=== PATIENT | male | born 1955 | race Caucasian/White ===

== ENCOUNTER 2018-09-15 07:52 | Day surgery (SDC) | payer MEDICAID, MEDICARE ==
[~2018-09-15] VITALS: Ht 175.3 cm; Wt 66.1 kg
[2018-09-15 09:10] VITALS: Ht 175.3 cm; Wt 66.1 kg
[2018-09-15] MEDS ORDERED: LOPERAMIDE PO (09:15)
[2018-09-15 09:58] VITALS: BP 123/64; PULSE 80; RESP 24
--- NOTE | 2018-09-15 10:29 | PREAC ---
Date/Time of Note Date/Time of Note DATE: 09/15/18 TIME: 10:28 Anesthesia Eval and Record Evaluation Time Pre-Procedure Interview DATE: 09/15/18 TIME: 10:28 Age 62 Sex male NPO: 8 hrs Preoperative diagnosis SCREENING Planned procedure COLONOSCOPY Past Medical History Past Medical History: Includes Pulm: Asthma Surgery & Anesthesia Issues No known issue Meds Anticoagulation: No Beta Maite within 24 hr: No Reason Beta Maite not given: Pt. not on B-Maite Reported Medications [Loperamide] No Conflict Check, PO DAILY PRN for DIARRHEA 09/15/18 Meds reviewed: Yes Allergies Coded Allergies: No Known Allergy (Unverified , 09/15/18) Allergies Reviewed: Yes Labs/Studies Labs Reviewed: Reviewed by anesthesiologist test: N/A Pre-procedure Exam Last vitals Vital Signs Date Temp Pulse Resp B/P (MAP) Pulse Ox O2 O2 Flow FiO2 Time Delivery Rate 09/15/18 97.3 80 24 123/64 99 Room Air 09:58 (83) Airway: Adequate mouth opening, Adequate thyromental dist Mallampati: Mallampati II Teeth: Normal Lung: Normal Heart: Normal ASA Physical Status ASA physical status: 2 Emergency: None Planned Anesthetic General/MAC: MAC Planned Pain Management Parenteral pain med Pre-operative Attestations Prior to commencing anesthesia and surgery, the patient was re-evaluated, there was verification of: *The patient's identity *The results of appropriate recent lab work and preoperative vital signs *The above evaluation not changing prior to induction *Anesthetic plan, risk benefits, alternative and complications discussed with patient/family; questions answered; patient/family understands, accepts and wishes to proceed. Nick Francois M.D. Sep 15, 2018 10:29
[2018-09-15] MEDS ORDERED: LIDOCAINE 100 MG SYRINGE ONE (10:30)
[2018-09-15] MEDS ORDERED: PROPOFOL 20 ML ONE (10:30)
--- NOTE | 2018-09-15 10:58 | PAC ---
Date/Time of Note Date/Time of Note DATE: 09/15/18 TIME: 10:58 Post-Anesthesia Notes Post-Anesthesia Note Last documented vital signs Vital Signs Date Temp Pulse Resp B/P (MAP) Pulse Ox O2 O2 Flow FiO2 Time Delivery Rate 09/15/18 97.3 80 24 123/64 99 Room Air 09:58 (83) Activity: WNL Respiratory function: WNL Cardiovascular function: WNL Mental status: Baseline Pain reasonably controlled: Yes Hydration appropriate: Yes Nausea/Vomiting absent: Yes Nick Francois M.D. Sep 15, 2018 10:58
[2018-09-15 11:30] VITALS: BP 107/65; PULSE 72; RESP 18
--- NOTE | 2018-09-16 07:37 | CONS ---
DATE OF ADMISSION: 09/15/2018 DATE OF CONSULTATION: PATIENT NAME: BINTA MICHELE TYPE OF CONSULTATION: Preoperative gastroenterology. Thank you very much for this kind referral. HISTORY OF PRESENT ILLNESS: Mr. Binta Michele is a 62-year-old male patient who has been referred to me for further evaluation of change in the bowel habit. There is no past history of colon neoplasm. T he patient never had screening colonoscopy. The patient has family history of colon cancer. Appetit e is good. No weight loss. No upper abdominal pain. Not on nonsteroidal anti-inflammatory agents. No history of gallstones or liver disease. Not a hypertensive or diabetic. No heart disease. PAST MEDICAL HISTORY: Has history of bronchial asthma and renal stones. He has enlarged prostate. SOCIAL HISTORY: Nonsmoker. No alcohol abuse. FAMILY HISTORY: Colon cancer. ALLERGIES: NO DRUG ALLERGIES. MEDICATIONS: None. PHYSICAL EXAMINATION: VITAL SIGNS: He is 5 feet, 9 inches tall and weighs 147 pounds. HEART: Normal heart sounds. LUNGS: Clear. ABDOMEN: Soft. No masses. Normal bowel sounds. NEUROLOGIC: Normal. IMPRESSION: 1. Change in the bowel habit. 2. Family history of colon cancer. 3. The patient never had screening colonoscopy. 4. Bronchial asthma. 5. History of renal stones. 6. Enlarged prostate. PLAN: Screening colonoscopy. The procedure and possible complications are well explained to the patient. He understands and conse nts to the procedure. I thank you once again. With warmest personal regards, Dictated By: SADIQ SWANSON/CHELI Conf#: [id number] DID#: [id number]
== END 2018-09-15 11:43 | disposition home or self-care (01) ==
LOC: GIL 07:52
PROVIDERS: ATTEND Internal Medicine Gastroenterology
DX: Z12.11 Encounter for screening for malignant neoplasm of colon (principal); K64.8 Other hemorrhoids; J45.909 Unspecified asthma, uncomplicated
CPT/HCPCS: 45378; J2001; Z7610